=== PATIENT | male | born 1975 | race Caucasian/White ===

== ENCOUNTER 2020-04-07 00:26 | Emergency (ER) | payer MEDICAID, SELFPAY ==
[2020-04-07 00:31] VITALS: BP 154/94; PULSE 88; RESP 16; TEMP 36.8; O2SAT 97; BMI 40.8
--- NOTE | 2020-04-07 00:36 | CT_ITS ---
EXAMINATION: CT ABDOMEN AND PELVIS WITHOUT CONTRAST CLINICAL INFORMATION: Abdominal pain, distention, shortness of breath COMPARISON: None TECHNIQUE: Multidetector volumetric imaging was performed from the superior aspect of the liver through the pubic symphysis. Sagittal and coronal reformatted images were obtained on the technologist's workstation. This CT examination was performed using dose optimization techniques as appropriate, variously including the following: *Automated exposure control *Adjustment of mA and/or kV according to patient size (this includes techniques or standardized protocols for targeted exams where dose is matched to indication/reason for exam; i.e. extremities or head) *Use of iterative reconstruction technique DLP: 1150 mGy-cm FINDINGS: LUNG BASES: The visualized lung bases are unremarkable. LIVER, GALLBLADDER, AND BILIARY TREE: The liver is normal in size, shape, and attenuation. No focal hepatic lesion or biliary ductal dilatation is present. The gallbladder is unremarkable with no evidence of radiopaque gallstones, gallbladder wall thickening, or obvious pericholecystic inflammatory changes. PANCREAS: Unremarkable. SPLEEN: Unremarkable. ADRENAL GLANDS: Unremarkable. KIDNEYS AND URETERS: The kidneys are normal in size, shape, and attenuation. No hydronephrosis, hydroureter, or calculi seen. No perinephric stranding. BLADDER: Unremarkable. GASTROINTESTINAL TRACT: The small and large bowel are unremarkable. The appendix is unremarkable. No free fluid or free air is seen. ABDOMINAL WALL: No significant hernia is appreciated. LYMPH NODES: Normal. VASCULAR: There is mild atherosclerotic calcification. PELVIC VISCERA: Unremarkable. OSSEOUS STRUCTURES: There is degenerative change in the spine at L5-S1. CT/CT abdomen pelvis wo con IMPRESSION: No acute findings identified in the abdomen/pelvis.
--- NOTE | 2020-04-07 00:36 | XR_ITS ---
EXAMINATION: XR CHEST CLINICAL INFORMATION: Shortness of breath, abdominal pain COMPARISON: None TECHNIQUE: Frontal view of the chest was obtained. FINDINGS: The lungs are clear with no focal consolidation. No evidence of pneumothorax, pulmonary edema, or pleural effusions. The cardiomediastinal contour is unremarkable. No acute osseous findings are seen. XR/XR chest 1V IMPRESSION: No acute cardiopulmonary findings.
--- NOTE | 2020-04-07 00:36 | ECG_ITS ---
Test Reason : ABD PAIN Blood Pressure : / mmHG Vent. Rate : 070 BPM Atrial Rate : 070 BPM P-R Int : 160 ms QRS Dur : 082 ms QT Int : 388 ms P-R-T Axes : 060 028 020 degrees QTc Int : 419 ms Normal sinus rhythm Normal ECG No previous ECGs available Referred By: Susan Clark Electronically Signed By:FRANKI NELSON
--- NOTE | 2020-04-07 00:36 | ED.ABDPAIN ---
HPI - Abdominal Pain General Chief Complaint: General Medical <JYOTI Hodgson Last Filed: 04/07/20 01:13> Stated Complaint: Rib pain <JYOTI Hodgson Last Filed: 04/07/20 01:13> Time Seen by Provider: 04/07/20 01:12 <JYOTI Hodgson Last Filed: 04/07/20 01:13> Source: patient <JYOTI Hodgson Last Filed: 04/07/20 01:13> Mode of arrival: ambulatory <JYOTI Hodgson Last Filed: 04/07/20 01:13> Limitations: no limitations <JYOTI Hodgson Last Filed: 04/07/20 01:13> History of Present Illness HPI narrative: 45-year-old male presents with right upper quadrant pain, abdominal distention, and shortness of breath. States that the abdominal pain started 5 days ago, was seen at [facility] and given an x-ray with some blood work but there were no acute findings. He states that he cannot bend over, is short of breath, and cannot eat. He feels like he is because his abdomen is so distended. He has not had any fevers or chills, does admit to occasional recreational cocaine use, and smokes cigarettes daily. <JYOTI Hodgson Last Filed: 04/07/20 01:13> MD elicited complaint: abdominal pain <JYOTI Hodgson Last Filed: 04/07/20 01:13> Onset (ago): day(s) (5) <JYOTI Hodgson Last Filed: 04/07/20 01:13> Pain Consistency: constant <JYOTI Hodgson Last Filed: 04/07/20 01:13> Location: diffuse <JYOTI Hodgson Last Filed: 04/07/20 01:13> Severity: severe <JYOTI Hodgson Last Filed: 04/07/20 01:13> Pain scale (0-10): 8 <JYOTI Hodgson Last Filed: 04/07/20 01:13> Quality: aching and fullness <Susan Clark NP - Last Filed: 04/07/20 01:13> Radiation: RUQ <Susan Clark NP - Last Filed: 04/07/20 01:13> Exacerbating factors: eating, bowel movement and movement <Susan Clark NP - Last Filed: 04/07/20 01:13> Relieving factors: nothing <Susan Clark NP - Last Filed: 04/07/20 01:13> Associated symptoms: nausea <Susan Clark NP - Last Filed: 04/07/20 01:13> Related Data Allergies/Adverse Reactions: Allergies Allergy/AdvReac Type Severity Reaction Status Date / Time No Known Allergies Allergy Verified 04/07/20 00:36 <Susan Clark NP - Last Filed: 04/07/20 01:13> Review of Systems Review of Systems Constitutional: No Weight loss, No Fever, No Chills, No Night Sweats, No Fatigue, No Malaise ENT/Mouth: No Hearing loss, No Ear Pain, No Nasal Congestion, No Sinus Pain, No Hoarseness, No sore throat, No Rhinorrhea, No Swallowing Difficulty Eyes: No Eye Pain, No Swelling, No Redness, No Foreign Body, No Discharge, No Vision Changes Cardiovascular: No Chest Pain, No SOB, No Dyspnea on Exertion, No Orthopnea, No Edema, No Palpitations Respiratory: No Cough, No Sputum, No Wheezing, No Smoke Exposure, No Dyspnea Gastrointestinal: Positive Nausea, No Vomiting, no Diarrhea, positive abdominal Pain, positive abdominal distention, No Hematochezia, No Melena Genitourinary: no irregular bleeding, No Dysuria, No Urinary Frequency, No Hematuria, No Urinary Incontinence, No Urgency, No Flank Pain, No Urinary Flow Changes, No Hesitancy Musculoskeletal: No joint pain, No Myalgias, No Joint Swelling Skin: No Skin Lesions, No rash Neuro: No Weakness, No Numbness, No Paresthesias, No Loss of Consciousness, No Dizziness, No Headache Psych: No Anxiety/Panic, No Depression, No SI/HI/AH/VH, No Social Issues Heme/Lymph: No Bruising, No Bleeding,No Lymphadenopathy Endocrine: No Polyuria, No Polydipsia, No Temperature Intolerance <Susan Clark NP - Last Filed: 04/07/20 01:13> Yes all other systems are reviewed and are negative <Susan Clark NP - Last Filed: 04/07/20 01:13> Physical Exam Vital Signs: Vital Signs: Last Vital Signs Temp 98.2 F 04/07/20 00:31 Pulse 88 04/07/20 00:31 Resp 16 04/07/20 00:31 BP 154/94 H 04/07/20 00:31 Pulse Ox 97 04/07/20 00:31 Body Mass Index 40.8 <Susan Clark NP - Last Filed: 04/07/20 01:13> Vital Signs: Last Vital Signs Temp 98.2 F 04/07/20 00:31 Pulse 88 04/07/20 00:31 Resp 16 04/07/20 00:31 BP 154/94 H 04/07/20 00:31 Pulse Ox 97 04/07/20 00:31 Body Mass Index 40.8 <Betina Bridges MD - Last Filed: 04/07/20 03:13> Appearance: Alert. Oriented X3. moderate distress. Eyes: Pupils equal, round and reactive to light. ENT: Pharynx normal. Neck: Normal inspection. Neck supple. CVS: Normal heart rate and rhythm. Pulses normal. Respiratory: No respiratory distress. Breath sounds normal. Abdomen: Obese abdomen, distended, tender to palpation in all quadrants Skin: Skin warm and dry. Normal skin color. Normal skin turgor. Extremities: No lower extremity edema. Neuro: No motor deficit. No sensory deficit. <Susan Clark NP - Last Filed: 04/07/20 01:13> Course Course Course Narrative: 45-year-old male presents with 5 days of abdominal pain, abdominal distention, shortness of breath. was seen at [facility] yesterday, plan of care is for CT scan of abdomen, chest x-ray, CBC, Chem 7, lactic and cultures. Will rule out ACS as he is morbidly obese and occasionally uses cocaine. sign-out to Dr. Bridges. <Susan Clark NP - Last Filed: 04/07/20 01:13> MDM - Abdominal Pain MDM Narrative Medical decision making narrative: CT scan of the abdomen pelvis did not show any acute findings. No obstruction or abscess no perforation. Patient well-appearing and sleeping. In no distress. Will discharge patient home. Close follow-up on an outpatient basis. Patient's white counts normal LFTs normal no abdominal pain at this time. Less likely to be secondary to cholecystitis. In stable condition. <Betina Bridges MD - Last Filed: 04/07/20 03:13> Differential Diagnosis Differential diagnosis: Likely abdominal pain, bowel perforation, constipation, diverticulitis and pancreatitis <Susan Clark NP - Last Filed: 04/07/20 01:13> Lab Data Result diagrams: : 04/07/20 00:56 04/07/20 00:56 <Susan Clark NP - Last Filed: 04/07/20 01:13> Labs: Lab Results 04/07/20 04/07/20 04/07/20 Range/Units 00:56 00:56 00:56 WBC 10.1 (4.8-10.8) X10*3/uL RBC 4.90 (4.60-5.80) X10*6/uL Hgb 14.1 (14.0-18.0) g/dl Hct 43.5 (42-52) % MCV 88.8 (80-98) fL MCH 28.8 (27.0-33.0) pg MCHC 32.4 (31.0-36.0) g/dl RDW 13.4 (11.0-16.0) % Plt Count 253 (160-400) X10*3/uL MPV 10.4 (9.4-12.4) fL Immature Gran % (Auto) 0.4 (0.0-0.4) % Neut % (Auto) 57.6 (45-73) % Lymph % (Auto) 25.7 (20-40) % [place] % (Auto) 10.9 (2-11) % Eos % (Auto) 4.8 H (0-4) % Baso % (Auto) 0.6 (0-2) % Lymph # (Auto) 2.6 (1.2-4.9) X10*3/uL [place] # (Auto) 1.1 (0.1-1.2) X10*3/uL Eos # (Auto) 0.5 H (0.0-0.4) X10*3/uL Baso # (Auto) 0.1 (0.0-0.2) X10*3/uL Abs Immat Gran (auto) 0.04 H (0.00-0.03) X10*3/uL Absolute Neuts (auto) 5.8 (2.0-8.3) X10*3/uL Absolute Nucleated RBC 0.000 (0.0-0.012) X10*3/uL Nucleated RBC % (auto) 0.0 (0.0-0.2) /100WBC Sodium 141 (135-145) mmol/L Potassium 4.3 (3.3-5.1) mmol/l Chloride 105 (96-108) mmol/L Carbon Dioxide 27 (22-29) mmol/L Anion Gap 13 (12-20) BUN 17 H (9-16) mg/dL Creatinine 0.96 (0.5-1.4) mg/dL Estim Creat Clear Calc 141.6 Estimated GFR > 60 Random Glucose 101 (60-115) mg/dL Calcium 9.0 (8.4-10.2) mg/dL Total Bilirubin 0.4 (0.0-1.0) mg/dL Direct Bilirubin < 0.2 (0.0-0.5) mg/dL AST 17 (5-37) U/L ALT 30 (0-40) U/L Alkaline Phosphatase 95 (39-117) U/L Troponin I High Sens 4.3 (<3.5-35.0) ng/L Total Protein 7.1 (6.5-8.0) g/dL Albumin 4.2 (3.5-5.0) g/dL Lipase 55 (8-78) U/L <Susan Clark NP - Last Filed: 04/07/20 01:13> Lab Results 04/07/20 04/07/20 04/07/20 Range/Units 00:56 00:56 00:56 WBC 10.1 (4.8-10.8) X10*3/uL RBC 4.90 (4.60-5.80) X10*6/uL Hgb 14.1 (14.0-18.0) g/dl Hct 43.5 (42-52) % MCV 88.8 (80-98) fL MCH 28.8 (27.0-33.0) pg MCHC 32.4 (31.0-36.0) g/dl RDW 13.4 (11.0-16.0) % Plt Count 253 (160-400) X10*3/uL MPV 10.4 (9.4-12.4) fL Immature Gran % (Auto) 0.4 (0.0-0.4) % Neut % (Auto) 57.6 (45-73) % Lymph % (Auto) 25.7 (20-40) % [place] % (Auto) 10.9 (2-11) % Eos % (Auto) 4.8 H (0-4) % Baso % (Auto) 0.6 (0-2) % Lymph # (Auto) 2.6 (1.2-4.9) X10*3/uL [place] # (Auto) 1.1 (0.1-1.2) X10*3/uL Eos # (Auto) 0.5 H (0.0-0.4) X10*3/uL Baso # (Auto) 0.1 (0.0-0.2) X10*3/uL Abs Immat Gran (auto) 0.04 H (0.00-0.03) X10*3/uL Absolute Neuts (auto) 5.8 (2.0-8.3) X10*3/uL Absolute Nucleated RBC 0.000 (0.0-0.012) X10*3/uL Nucleated RBC % (auto) 0.0 (0.0-0.2) /100WBC Sodium 141 (135-145) mmol/L Potassium 4.3 (3.3-5.1) mmol/l Chloride 105 (96-108) mmol/L Carbon Dioxide 27 (22-29) mmol/L Anion Gap 13 (12-20) BUN 17 H (9-16) mg/dL Creatinine 0.96 (0.5-1.4) mg/dL Estim Creat Clear Calc 141.6 Estimated GFR > 60 Random Glucose 101 (60-115) mg/dL Calcium 9.0 (8.4-10.2) mg/dL Total Bilirubin 0.4 (0.0-1.0) mg/dL Direct Bilirubin < 0.2 (0.0-0.5) mg/dL AST 17 (5-37) U/L ALT 30 (0-40) U/L Alkaline Phosphatase 95 (39-117) U/L Troponin I High Sens 4.3 (<3.5-35.0) ng/L Total Protein 7.1 (6.5-8.0) g/dL Albumin 4.2 (3.5-5.0) g/dL Lipase 55 (8-78) U/L <Betina Bridges MD - Last Filed: 04/07/20 03:13> Discharge Plan Discharge Clinical Impression: Abdominal pain in male <Susan Clark NP - Last Filed: 04/07/20 01:13> Patient Disposition: Home, Self-Care <Susan Clark NP - Last Filed: 04/07/20 01:13> Instructions: Abdominal Pain (ED) <Susan Clark NP - Last Filed: 04/07/20 01:13> Referrals: Physician,Unknown [Primary Care Provider] - 2 days <Susan Clark NP - Last Filed: 04/07/20 01:13> PMFSH Past Medical History Attestation statement: The following information was validated with the patient. <Susan Clark NP - Last Filed: 04/07/20 01:13> Medical History: Medical History HTN (hypertension) <Susan Clark NP - Last Filed: 04/07/20 01:13> Social History Social History: Social History Advance Directives: No <Susan Clark NP - Last Filed: 04/07/20 01:13>
--- NOTE | 2020-04-07 01:02 | PC.NURSE ---
REPORT ON PT GIVEN TO AYO THOMAS WHO WILL RESUME PT CARE.
[2020-04-07] MEDS: ondansetron HCL 4 MG/2 ML VIAL IVPUSH (01:05)
[2020-04-07] MEDS: Morphine Sulfate 4 MG/ML CARTRIDGE IVPUSH (01:06)
[2020-04-07 01:10] LABS: MANUAL DIFF FLAG NO
[2020-04-07 01:11] LABS: Basophils Absolute Auto 0.1 X10*3/uL (0.0-0.2); Basophils Percent Auto 0.6 % (0-2); Eosinophils Absolute Auto 0.5 X10*3/uL (0.0-0.4); Eosinophils Percent Auto 4.8 % (0-4); Hematocrit 43.5 % (42-52); Hemoglobin 14.1 g/dl (14.0-18.0); Imm Gran Abs Auto 0.04 X10*3/uL (0.00-0.03); Imm Gran Pct Auto 0.4 % (0.0-0.4); Lymphocytes Absolute Auto 2.6 X10*3/uL (1.2-4.9); Lymphocytes Percent Auto 25.7 % (20-40); Mean Corpuscular HGB Conc 32.4 g/dl (31.0-36.0); Mean Corpuscular Hemoglobin 28.8 pg (27.0-33.0); Mean Corpuscular Volume 88.8 fL (80-98); Mean Platelet Volume 10.4 fL (9.4-12.4); Monocytes Absolute Auto 1.1 X10*3/uL (0.1-1.2); Monocytes Percent Auto 10.9 % (2-11); Neutrophils Absolute Auto 5.8 X10*3/uL (2.0-8.3); Neutrophils Percent Auto 57.6 % (45-73); Platelet Count 253 X10*3/uL (160-400); Red Cell Distribution Width 13.4 % (11.0-16.0); White Blood Count 10.1 X10*3/uL (4.8-10.8)
[2020-04-07 01:34] LABS: Alanine Aminotransferase 30 U/L (0-40); Albumin Level 4.2 g/dL (3.5-5.0); Alkaline Phosphatase 95 U/L (39-117); Anion Gap 13 (12-20); Aspartate Amino Transferase 17 U/L (5-37); Bilirubin Direct < 0.2 mg/dL (0.0-0.5); Bilirubin Total 0.4 mg/dL (0.0-1.0); Blood Urea Nitrogen 17 mg/dL (9-16); Carbon Dioxide 27 mmol/L (22-29); Chloride 105 mmol/L (96-108); Creatinine Clr Calc Pharmacy 141.6; Estimated Glomerular Filt Rate > 60; Glucose Random 101 mg/dL (60-115); Lipase 55 U/L (8-78); Potassium 4.3 mmol/l (3.3-5.1); Sodium 141 mmol/L (135-145); Total Protein 7.1 g/dL (6.5-8.0)
[2020-04-07 01:37] LABS: Troponin-I High Sensitivity 4.3 ng/L (<3.5-35.0)
--- NOTE | 2020-04-07 02:02 | PC.NURSE ---
EKG OBTAINED TO
== END 2020-04-07 04:09 | disposition home or self-care (01) ==
PROVIDERS: Nurse Practitioner Family; Emergency Provider Emergency Medicine
DX: R07.81 Pleurodynia (principal); R06.02 Shortness of breath
CPT/HCPCS: 36415; 71045; 74176; 80048; 80076; 83690; 84484; 85025; 93005; 96374; 99283; 99284; J2270; J2405